=== PATIENT | female | born 1960 | race Caucasian/White ===

== ENCOUNTER 2016-05-20 20:11 | Inpatient (IN) | payer OTHER ==
[~2016-05-20] VITALS: Ht 165.1 cm; Wt 38.2 kg
[2016-05-20] MEDS ORDERED: DUONEB INH ONE ×2 (22:03→22:04)
[2016-05-20] MEDS ORDERED: METHYLPRED SOD SUCC 125 MG/2 ML VIAL ONE (22:05)
[2016-05-20] MEDS ORDERED: CEFTRIAXONE 1 GM VIAL ONE (22:29)
[2016-05-20] MEDS ORDERED: SODIUM CHLORIDE 0.9% 100 ML IV ONE (22:29)
[2016-05-20] MEDS ORDERED: ACETAMINOPHEN 325 MG TAB PO PRN (22:40)
[2016-05-20] MEDS ORDERED: SALINE FLUSH 10 ML FLUSH PRN (22:40)
[2016-05-20] MEDS ORDERED: MAG HYDROX 30 ML UDC PO PRN (22:40)
[2016-05-20] MEDS ORDERED: ALU/MAG/SIM 30 ML UDC PO PRN (22:40)
[2016-05-20] MEDS ORDERED: BISACODYL 10 MG SUPP RECTAL PRN (22:40)
[2016-05-20] MEDS ORDERED: PROMETHAZINE 25 MG/ML VIAL IV PRN (22:40)
[2016-05-20] MEDS ORDERED: DOCUSATE SOD 100 MG CAP PO PRN (22:45)
[2016-05-20] MEDS ORDERED: ONDANSETRON 4 MG TAB PO PRN (22:45)
[2016-05-20] MEDS: AZITHROMYCIN 500 MG in SODIUM CHLORIDE 0.9% 250 ML IV SCH (23:16)
[2016-05-20] MEDS ORDERED: AZITHROMYCIN 500 MG VIAL IV ONE (23:16)
[2016-05-20] MEDS ORDERED: SODIUM CHLORIDE 0.9% 250 ML IV ONE (23:16)
[2016-05-20 23:51] VITALS: BP_SYST 105; RESP 22; TEMP 97.5
[2016-05-20 23:52] VITALS: BMI 14.0
[2016-05-21] MEDS: DUONEB INH SCH ×6 (00:25→22:43)
[2016-05-21 00:28] VITALS: RESP 18
[2016-05-21] MEDS: METHYLPRED SOD SUCC 40 MG VIAL IV SCH ×3 (05:57→19:02)
[2016-05-21] MEDS: SODIUM CHLORIDE 0.9% FLUSH BAG 500 ML IV SCH ×2 (05:58)
[2016-05-21 07:18] VITALS: BP_SYST 100; RESP 18; TEMP 97.6
[2016-05-21] MEDS: NEB-BROVANA 15 MCG/2 ML INH SCH ×2 (07:38→18:36)
[2016-05-21] MEDS: MDI-SPIRIVA 5 DOSES INH SCH (07:38)
[2016-05-21] MEDS: SALINE FLUSH 10 ML FLUSH SCH ×2 (08:00→20:00)
[2016-05-21] MEDS: ENOXAPARIN 40 MG/0.4 ML SYR SUBQ SCH ×2 (09:00→09:46)
[2016-05-21] MEDS: POLYETHYLENE GLYCOL 17 GM PACKET PO SCH (09:00)
[2016-05-21 09:26] VITALS: Ht 165.1 cm; Wt 38.2 kg
[2016-05-21] MEDS: CEFTRIAXONE 1 GM in SODIUM CHLORIDE 0.9% 50 ML IV SCH (09:43)
[2016-05-21] MEDS: FOLIC ACID 1 MG TAB PO SCH (09:45)
[2016-05-21] MEDS: CALCIUM /VIT D 600 MG TAB PO SCH (09:45)
[2016-05-21] MEDS: MELOXICAM 7.5 MG TAB PO SCH (09:45)
[2016-05-21] MEDS: MULTIVITS/MINERALS (THERAGRAN M) TAB PO SCH (09:45)
[2016-05-21] MEDS: DULoxetine 20 MG CAP PO SCH (09:45)
[2016-05-21] MEDS: GABAPENTIN 100 MG CAP PO SCH ×2 (09:45→20:41)
[2016-05-21] MEDS: AZITHROMYCIN 500 MG in SODIUM CHLORIDE 0.9% 250 ML IV SCH (10:46)
[2016-05-21 11:56] VITALS: BP_SYST 114; RESP 20; TEMP 98
[2016-05-21 16:12] VITALS: BP_SYST 101; RESP 20; TEMP 98.3
[2016-05-21 20:46] VITALS: BP_SYST 114; RESP 20; TEMP 97.8
[2016-05-21] MEDS ORDERED: ZOLPIDEM 5 MG TAB PO ONE (21:00)
[2016-05-22] VITALS (8 sets, daily range): BP systolic 105–127; RESP 16–20; TEMP 97.2–98.1
[2016-05-22] MEDS: SODIUM CHLORIDE 0.9% 1,000 ML IV SCH ×2 (00:49→20:13)
[2016-05-22] MEDS: SODIUM CHLORIDE 0.9% FLUSH BAG 500 ML IV SCH ×2 (05:52)
[2016-05-22] MEDS: DUONEB INH SCH ×5 (06:41→22:28)
[2016-05-22] MEDS: NEB-BROVANA 15 MCG/2 ML INH SCH ×2 (06:41→18:18)
[2016-05-22] MEDS: MDI-SPIRIVA 5 DOSES INH SCH (06:41)
[2016-05-22] MEDS: SALINE FLUSH 10 ML FLUSH SCH ×2 (08:00→20:00)
[2016-05-22] MEDS: Hydrocodone/APAP 10/325 MG TAB PO PRN ×4 (09:53→23:25)
[2016-05-22] MEDS: CALCIUM /VIT D 600 MG TAB PO SCH (09:56)
[2016-05-22] MEDS: FOLIC ACID 1 MG TAB PO SCH (09:56)
[2016-05-22] MEDS: DULoxetine 20 MG CAP PO SCH (09:56)
[2016-05-22] MEDS: GABAPENTIN 100 MG CAP PO SCH ×2 (09:56→20:13)
[2016-05-22] MEDS: MELOXICAM 7.5 MG TAB PO SCH (09:57)
[2016-05-22] MEDS: MULTIVITS/MINERALS (THERAGRAN M) TAB PO SCH (09:57)
[2016-05-22] MEDS: ENOXAPARIN 40 MG/0.4 ML SYR SUBQ SCH (10:02)
[2016-05-22] MEDS: AZITHROMYCIN 500 MG in SODIUM CHLORIDE 0.9% 250 ML IV SCH (10:05)
[2016-05-22] MEDS: CEFTRIAXONE 1 GM in SODIUM CHLORIDE 0.9% 50 ML IV SCH (10:06)
[2016-05-22] MEDS: POLYETHYLENE GLYCOL 17 GM PACKET PO SCH (10:13)
[2016-05-22] MEDS: Dronabinol 2.5 MG CAP PO SCH (20:13)
[2016-05-23 03:42] VITALS: BP_SYST 117; RESP 20; TEMP 98
[2016-05-23] MEDS: NEB-BROVANA 15 MCG/2 ML INH SCH ×2 (06:26→18:42)
[2016-05-23] MEDS: DUONEB INH SCH ×5 (06:26→23:02)
[2016-05-23] MEDS: MDI-SPIRIVA 5 DOSES INH SCH (06:31)
[2016-05-23] MEDS: SODIUM CHLORIDE 0.9% FLUSH BAG 500 ML IV SCH ×2 (07:00→08:48)
[2016-05-23 07:37] VITALS: BP_SYST 111; RESP 16; TEMP 97.2
[2016-05-23] MEDS: CEFTRIAXONE 1 GM in SODIUM CHLORIDE 0.9% 50 ML IV SCH (08:44)
[2016-05-23] MEDS: CALCIUM /VIT D 600 MG TAB PO SCH (08:45)
[2016-05-23] MEDS: FOLIC ACID 1 MG TAB PO SCH (08:46)
[2016-05-23] MEDS: SALINE FLUSH 10 ML FLUSH SCH ×2 (08:46→20:00)
[2016-05-23] MEDS: POLYETHYLENE GLYCOL 17 GM PACKET PO SCH (08:46)
[2016-05-23] MEDS: DULoxetine 20 MG CAP PO SCH (08:46)
[2016-05-23] MEDS: GABAPENTIN 100 MG CAP PO SCH ×2 (08:46→21:29)
[2016-05-23] MEDS: MELOXICAM 7.5 MG TAB PO SCH (08:47)
[2016-05-23] MEDS: MULTIVITS/MINERALS (THERAGRAN M) TAB PO SCH (08:48)
[2016-05-23] MEDS: Dronabinol 2.5 MG CAP PO SCH ×2 (08:58→21:29)
[2016-05-23] MEDS: Hydrocodone/APAP 10/325 MG TAB PO PRN ×2 (09:03→21:36)
[2016-05-23] MEDS: AZITHROMYCIN 500 MG in SODIUM CHLORIDE 0.9% 250 ML IV SCH (09:57)
[2016-05-23] MEDS: ONDANSETRON 4 MG VIAL IV PRN (10:57)
[2016-05-23 11:21] VITALS: BP_SYST 106; RESP 16; TEMP 97.6
[2016-05-23] MEDS: SODIUM CHLORIDE 0.9% 1,000 ML IV SCH (13:55)
[2016-05-23] MEDS ORDERED: PHARMACY TO DOSE ZOSYN IV SCH (14:40)
[2016-05-23] MEDS: PIPERACIL/TAZO 3.375GM/50ML 50 ML IV SCH ×3 (15:08→23:29)
[2016-05-23 15:34] VITALS: BP_SYST 100; RESP 20; TEMP 98
[2016-05-23 21:02] VITALS: BP_SYST 129; RESP 16; TEMP 97.3
[2016-05-23] MEDS: ALPRAZOLAM 0.25 MG TAB PO PRN (23:28)
[2016-05-24] VITALS (7 sets, daily range): BP systolic 111–148; RESP 16–22; TEMP 97.3–98
[2016-05-24] MEDS: SODIUM CHLORIDE 0.9% FLUSH BAG 500 ML IV SCH ×2 (04:56)
[2016-05-24] MEDS: NEB-BROVANA 15 MCG/2 ML INH SCH ×2 (05:11→19:28)
[2016-05-24] MEDS: DUONEB INH SCH ×5 (05:11→23:57)
[2016-05-24] MEDS: MDI-SPIRIVA 5 DOSES INH SCH (05:12)
[2016-05-24] MEDS: PIPERACIL/TAZO 3.375GM/50ML 50 ML IV SCH ×2 (05:44→11:21)
[2016-05-24] MEDS: SODIUM CHLORIDE 0.9% 1,000 ML IV SCH (05:44)
[2016-05-24] MEDS: SALINE FLUSH 10 ML FLUSH SCH ×2 (08:00→20:00)
[2016-05-24] MEDS ORDERED: MISSING DOSE XX ONE (10:20)
[2016-05-24] MEDS: POLYETHYLENE GLYCOL 17 GM PACKET PO SCH (10:21)
[2016-05-24] MEDS: Dronabinol 2.5 MG CAP PO SCH ×2 (10:21→21:05)
[2016-05-24] MEDS: DULoxetine 20 MG CAP PO SCH (10:21)
[2016-05-24] MEDS: MULTIVITS/MINERALS (THERAGRAN M) TAB PO SCH (10:22)
[2016-05-24] MEDS: MELOXICAM 7.5 MG TAB PO SCH (10:22)
[2016-05-24] MEDS: CALCIUM /VIT D 600 MG TAB PO SCH (10:22)
[2016-05-24] MEDS: GABAPENTIN 100 MG CAP PO SCH ×2 (10:22→21:05)
[2016-05-24] MEDS: FOLIC ACID 1 MG TAB PO SCH (10:22)
[2016-05-24] MEDS: ENOXAPARIN 40 MG/0.4 ML SYR SUBQ SCH (10:23)
[2016-05-24] MEDS: BISACODYL EC 5 MG TAB PO PRN (10:36)
[2016-05-24] MEDS ORDERED: PHARMACY TO DOSE MERREM XX SCH (12:25)
[2016-05-24] MEDS: Hydrocodone/APAP 10/325 MG TAB PO PRN (21:06)
[2016-05-24] MEDS: ALPRAZOLAM 0.25 MG TAB PO PRN (22:20)
[2016-05-25 03:48] VITALS: BP_SYST 130; RESP 18; TEMP 97.9
[2016-05-25] MEDS: SODIUM CHLORIDE 0.9% FLUSH BAG 500 ML IV SCH ×2 (06:00)
[2016-05-25] MEDS: MDI-SPIRIVA 5 DOSES INH SCH (07:26)
[2016-05-25] MEDS: DUONEB INH SCH ×5 (07:26→22:21)
[2016-05-25] MEDS: NEB-BROVANA 15 MCG/2 ML INH SCH ×2 (07:26→18:10)
[2016-05-25] MEDS: SALINE FLUSH 10 ML FLUSH SCH ×2 (08:00→19:40)
[2016-05-25 08:07] VITALS: BP_SYST 139; RESP 16; TEMP 97.3
[2016-05-25] MEDS: MULTIVITS/MINERALS (THERAGRAN M) TAB PO SCH (08:25)
[2016-05-25] MEDS: DULoxetine 20 MG CAP PO SCH (08:25)
[2016-05-25] MEDS: FOLIC ACID 1 MG TAB PO SCH (08:25)
[2016-05-25] MEDS: Dronabinol 2.5 MG CAP PO SCH ×2 (08:25→21:23)
[2016-05-25] MEDS: CALCIUM /VIT D 600 MG TAB PO SCH (08:25)
[2016-05-25] MEDS: POLYETHYLENE GLYCOL 17 GM PACKET PO SCH (08:25)
[2016-05-25] MEDS: MELOXICAM 7.5 MG TAB PO SCH (08:25)
[2016-05-25] MEDS: ENOXAPARIN 40 MG/0.4 ML SYR SUBQ SCH (08:26)
[2016-05-25] MEDS: GABAPENTIN 100 MG CAP PO SCH ×2 (08:29→21:23)
[2016-05-25] MEDS ORDERED: MISSING DOSE XX ONE ×2 (08:35→08:45)
[2016-05-25] MEDS: BISACODYL EC 5 MG TAB PO PRN (09:58)
[2016-05-25 11:27] VITALS: BP_SYST 112; RESP 16; TEMP 97.3
[2016-05-25 15:11] VITALS: BP_SYST 135; RESP 16; TEMP 97.2
[2016-05-25 20:07] VITALS: BP_SYST 137; RESP 22; TEMP 98
[2016-05-25] MEDS: FAMOTIDINE 20 MG TAB PO SCH (21:23)
[2016-05-25] MEDS: Hydrocodone/APAP 10/325 MG TAB PO PRN (21:29)
[2016-05-25] MEDS: ALPRAZOLAM 0.25 MG TAB PO PRN (22:07)
[2016-05-25 23:23] VITALS: BP_SYST 118; RESP 22; TEMP 98.3
[2016-05-26 05:00] VITALS: BP_SYST 119; RESP 20; TEMP 97.4
[2016-05-26] MEDS: SODIUM CHLORIDE 0.9% FLUSH BAG 500 ML IV SCH ×2 (06:00→06:20)
[2016-05-26] MEDS: NEB-BROVANA 15 MCG/2 ML INH SCH ×2 (06:39→17:25)
[2016-05-26] MEDS: DUONEB INH SCH ×5 (06:39→23:29)
[2016-05-26 08:10] VITALS: BP_SYST 126; RESP 20; TEMP 97.4
[2016-05-26] MEDS: SALINE FLUSH 10 ML FLUSH SCH ×2 (08:20→21:00)
[2016-05-26] MEDS: CALCIUM /VIT D 600 MG TAB PO SCH (08:21)
[2016-05-26] MEDS: FOLIC ACID 1 MG TAB PO SCH (08:21)
[2016-05-26] MEDS: Dronabinol 2.5 MG CAP PO SCH ×2 (08:22→20:23)
[2016-05-26] MEDS: MELOXICAM 7.5 MG TAB PO SCH (08:22)
[2016-05-26] MEDS: MULTIVITS/MINERALS (THERAGRAN M) TAB PO SCH (08:22)
[2016-05-26] MEDS: DULoxetine 20 MG CAP PO SCH (08:22)
[2016-05-26] MEDS: GABAPENTIN 100 MG CAP PO SCH ×2 (08:22→20:23)
[2016-05-26] MEDS: ENOXAPARIN 40 MG/0.4 ML SYR SUBQ SCH (08:23)
[2016-05-26] MEDS: POLYETHYLENE GLYCOL 17 GM PACKET PO SCH (08:23)
[2016-05-26] MEDS: METOPROLOL XL 25 MG TAB PO SCH (10:05)
[2016-05-26] MEDS: Hydrocodone/APAP 10/325 MG TAB PO PRN (12:03)
[2016-05-26 12:44] VITALS: BP_SYST 111; RESP 22; TEMP 97.6
[2016-05-26] MEDS: ONDANSETRON 4 MG VIAL IV PRN (16:55)
[2016-05-26] MEDS: SACCHA BOULARDII 250MG CAP PO SCH (20:23)
[2016-05-26] MEDS: FAMOTIDINE 20 MG TAB PO SCH (20:23)
[2016-05-26 20:29] VITALS: BP_SYST 117; RESP 18; TEMP 97.5
[2016-05-26] MEDS: ALPRAZOLAM 0.25 MG TAB PO PRN (22:39)
[2016-05-27 00:16] VITALS: BP_SYST 102; RESP 20; TEMP 97.3
[2016-05-27] MEDS: SALINE FLUSH 10 ML FLUSH SCH ×2 (04:19→20:09)
[2016-05-27 05:42] VITALS: BP_SYST 121; RESP 16; TEMP 98.2
[2016-05-27] MEDS: SODIUM CHLORIDE 0.9% FLUSH BAG 500 ML IV SCH ×2 (06:00→06:03)
[2016-05-27 07:00] VITALS: BP_SYST 118; RESP 20; TEMP 98
[2016-05-27] MEDS: NEB-BROVANA 15 MCG/2 ML INH SCH ×2 (08:13→17:44)
[2016-05-27] MEDS: DUONEB INH SCH ×5 (08:14→22:28)
[2016-05-27] MEDS: DULoxetine 20 MG CAP PO SCH (09:14)
[2016-05-27] MEDS: CALCIUM /VIT D 600 MG TAB PO SCH (09:14)
[2016-05-27] MEDS: FOLIC ACID 1 MG TAB PO SCH (09:14)
[2016-05-27] MEDS: SACCHA BOULARDII 250MG CAP PO SCH ×2 (09:15→20:09)
[2016-05-27] MEDS: Dronabinol 2.5 MG CAP PO SCH ×2 (09:15→20:09)
[2016-05-27] MEDS: MELOXICAM 7.5 MG TAB PO SCH (09:15)
[2016-05-27] MEDS: GABAPENTIN 100 MG CAP PO SCH ×2 (09:15→20:09)
[2016-05-27] MEDS: METOPROLOL XL 25 MG TAB PO SCH (09:15)
[2016-05-27] MEDS: MULTIVITS/MINERALS (THERAGRAN M) TAB PO SCH (09:15)
[2016-05-27] MEDS: Hydrocodone/APAP 10/325 MG TAB PO PRN ×2 (09:16→20:14)
[2016-05-27] MEDS: ENOXAPARIN 40 MG/0.4 ML SYR SUBQ SCH (09:18)
[2016-05-27 11:00] VITALS: BP_SYST 114; RESP 18; TEMP 97.3
[2016-05-27 15:00] VITALS: BP_SYST 110; RESP 18; TEMP 97.7
[2016-05-27] MEDS: FAMOTIDINE 20 MG TAB PO SCH (20:09)
[2016-05-27 20:49] VITALS: BP_SYST 118; RESP 20; TEMP 98.1
[2016-05-27] MEDS: ALPRAZOLAM 0.25 MG TAB PO PRN (21:38)
[2016-05-28 00:22] VITALS: BP_SYST 106; RESP 16; TEMP 97.8
[2016-05-28 03:58] VITALS: BP_SYST 111; RESP 16; TEMP 97.8
[2016-05-28] MEDS: DUONEB INH SCH ×2 (05:09→10:50)
[2016-05-28] MEDS: NEB-BROVANA 15 MCG/2 ML INH SCH (05:10)
[2016-05-28] MEDS: SODIUM CHLORIDE 0.9% FLUSH BAG 500 ML IV SCH ×2 (06:00)
[2016-05-28 08:44] VITALS: BP_SYST 100; RESP 18; TEMP 97.9
[2016-05-28 08:51] VITALS: BP_SYST 100; RESP 18; TEMP 97.9
[2016-05-28] MEDS: ENOXAPARIN 40 MG/0.4 ML SYR SUBQ SCH (09:00)
[2016-05-28] MEDS: SALINE FLUSH 10 ML FLUSH SCH (09:43)
[2016-05-28] MEDS: FOLIC ACID 1 MG TAB PO SCH (09:44)
[2016-05-28] MEDS: METOPROLOL XL 25 MG TAB PO SCH (09:44)
[2016-05-28] MEDS: CALCIUM /VIT D 600 MG TAB PO SCH (09:45)
[2016-05-28] MEDS: GABAPENTIN 100 MG CAP PO SCH (09:45)
[2016-05-28] MEDS: Dronabinol 2.5 MG CAP PO SCH (09:45)
[2016-05-28] MEDS: SACCHA BOULARDII 250MG CAP PO SCH (09:45)
[2016-05-28] MEDS: DULoxetine 20 MG CAP PO SCH (09:45)
[2016-05-28] MEDS: MELOXICAM 7.5 MG TAB PO SCH (09:46)
[2016-05-28] MEDS: MULTIVITS/MINERALS (THERAGRAN M) TAB PO SCH (09:46)
[2016-05-28 12:40] VITALS: BP_SYST 106; RESP 18; TEMP 97.2
== END 2016-05-28 13:27 | disposition home or self-care (01) | DRG 871 ==
LOC: ENRESERVDT → ENRESERVTM → CANRESERV → ER 20:11 → EMR 22:37 → ENPENDDIS 22:37 → 3S 23:13
PROVIDERS: ADMIT Family Medicine; ATTEND Family Medicine
CPT/HCPCS: 36415; 36600; 71010; 71250; 80048; 80053; 82553; 82803; 83605; 83880; 84484; 85025; 85610; 85730; 87040; 87071; 87077; 87186; 87299; 93005; 94640; 94799; 96365; 96375; 99223; 99232; 99233; 99255